=== PATIENT | male | born 1960 | race Caucasian/White ===

== ENCOUNTER 2017-01-24 11:38 | Emergency (ER) | payer BC, OTHER ==
[~2017-01-24] VITALS: Ht 182.9 cm; Wt 88.5 kg
[2017-01-24 11:40] VITALS: BP_SYST 134
[2017-01-24 12:50] VITALS: BP_SYST 130
== END 2017-01-24 12:50 | disposition home or self-care (01) ==
LOC: SED 11:40
DX: S93.402A Sprain of unspecified ligament of left ankle, initial encounter (principal); W17.89XA Other fall from one level to another, initial encounter; Y93.89 Activity, other specified; Y99.8 Other external cause status; Y92.89 Other specified places as the place of occurrence of the external cause
CPT/HCPCS: 99284